=== PATIENT | female | born 1990 | race Two or more races ===

== ENCOUNTER 2024-03-30 22:21 | Inpatient (IN) | payer MEDICAID, OTHER ==
[~2024-03-30] VITALS: Ht 162.6 cm; Wt 52.9 kg
[2024-03-30 23:21] LABS: Hematocrit 45.5 % (36.0-46.0); Hemoglobin 15.4 g/dL (12.2-16.2); Mean Corpuscular Hemoglobin 29.9 pg (28.0-32.0); Mean Corpuscular Hgb Conc. 33.9 g/dL (32.0-36.0); Mean Corpuscular Volume 88.3 fL (80.0-100.0); Red Blood Cells 5.15 10^6/uL (4.0-5.20); Red Cell Distribution Width 13.3 % (11.8-14.3); White Blood Cell 16.5 10^3/uL (4.4-10.8)
[2024-03-30 23:22] LABS: Basophils % (manual) 0 (0.0-2.0); Blast Cells 0; Eosinophils % (manual) 0 (0-7); Metamyelocytes % 0; Myelocytes % 0; Promyelocytes % 0; Reactive Lymphocytes 0
[2024-03-30 23:36] LABS: Band Neutrophils % (manual) 4; Lymphocytes % (manual) 2 (10.0-50.0); Monocytes % (manual) 7 (0-12); Platelet Estimate Adequate
[2024-03-30 23:39] LABS: Alanine Aminotransferase 20 U/L (7-40); Albumin 4.8 g/dL (3.2-4.8); Alkaline Phosphatase 80 U/L (46-116); Anion Gap 8 (5-15); Aspartate Aminotransferase 22 U/L (13-40); BUN/Creatinine Ratio 8.6 (10.0-20.0); Blood Urea Nitrogen 9 mg/dL (9-23); Calcium 10.3 mg/dL (8.7-10.4); Carbon Dioxide 24 mmol/L (20-30); Chloride 107 mmol/L (98-107); Glucose 138 mg/dL (74-106); Lipase 38 U/L (12-53); Potassium 3.9 mmol/L (3.5-5.1); Sodium 139 mmol/L (136-145)
[2024-03-30 23:40] LABS: Total Protein 7.9 g/dL (5.7-8.2)
[2024-03-31] MEDS: MORPHINE SULFATE 4 MG/ML SYR/VIAL IV ONE (00:49)
[2024-03-31] MEDS: PANTOPRAZOLE 40 MG/10 ML VIAL INJ IV ONE (00:50)
[2024-03-31] MEDS: ONDANSETRON HCL 4 MG/2 ML VIAL IV ONE (00:50)
[2024-03-31] MEDS: SODIUM CHLORIDE 0.9% 1,000 ML IV ONE (00:51)
[2024-03-31 01:17] VITALS: PULSE 88; RESP 14; O2SAT 97
[2024-03-31] MEDS: PIPERACILLIN-TAZO 4.5GM 100 ML IV ONE (02:18)
[2024-03-31] MEDS ORDERED: ACETAMINOPHEN 325 MG TAB PO PRN (06:00)
[2024-03-31] MEDS ORDERED: MORPHINE SULFATE INJ 2 MG/ml SYRG IV PRN (06:00)
[2024-03-31] MEDS: metroNIDAZOLE 500MG/100ML 100 ML IV SCH (06:27)
[2024-03-31 07:47] LABS: Urine Bacteria None Seen /hpf (None Seen)
[2024-03-31 07:55] LABS: Urine Blood Negative /uL (Negative); Urine Clarity Clear (Clear); Urine Color Light-Yellow (Yellow); Urine Protein, UAD Negative (Negative); Urine Specific Gravity 1.028 (1.001-1.035); Urine Urobilinogen Normal (Negative); Urine WBC <1 /hpf (0 - 5)
[2024-03-31 08:00] VITALS: PULSE 68; RESP 20; O2SAT 99
[2024-03-31] MEDS: cefTRIAXone 1GM/50ML D5W 50 ML IV SCH (09:16)
[2024-03-31 09:57] VITALS: BP 99/56; PULSE 83; RESP 16; TEMP 98.1; O2SAT 98
[2024-03-31] MEDS ORDERED: CHOL20002 PO (10:05)
[2024-03-31] MEDS: HYDROcodone-ACET 5/325MG TAB PO PRN (11:00)
[2024-03-31] MEDS: LACTATED RINGER'S 1,000 ML IV SCH (11:19)
[2024-03-31] MEDS ORDERED: PARO-135 (15:59)
[2024-03-31 16:00] VITALS: BP 91/54; PULSE 76; RESP 16; TEMP 98.3; O2SAT 97
[2024-03-31] MEDS: metroNIDAZOLE 500 MG TAB PO SCH (17:16)
[2024-03-31] MEDS: ONDANSETRON HCL 4 MG/2 ML VIAL IV PRN (17:20)
[2024-03-31 20:00] VITALS: PULSE 76; RESP 18
[2024-03-31 21:00] VITALS: BP 96/64; PULSE 77; RESP 17; TEMP 98.2; O2SAT 97
[2024-04-01] VITALS (8 sets, daily range): BP systolic 99–116; BP diastolic 60–74; PULSE 50–72; RESP 16–18; TEMP 97.7–98.9; O2SAT 95–99
[2024-04-01 06:57] LABS: Basophils # (auto) 0 10 ^3/uL (0-0.2); Basophils % (auto) 0.3 % (0.0-2.0); Eosinophils # (auto) 0.2 10 ^3/uL (0-0.8); Eosinophils % (auto) 4.7 % (0.0-7.0); Hemoglobin 11.9 g/dL (12.2-16.2); Lymphocytes # (auto) 0.6 10 ^3/uL (0.4-5.4); Lymphocytes % (auto) 11.9 % (10.0-50.0); Mean Corpuscular Hemoglobin 30.8 pg (28.0-32.0); Mean Corpuscular Hgb Conc. 34.8 g/dL (32.0-36.0); Mean Corpuscular Volume 88.4 fL (80.0-100.0); Monocytes # (auto) 0.6 10 ^3/uL (0-1.3); Monocytes % (auto) 11.5 % (0.0-12.0); Neutrophils # (auto) 3.5 10 ^3/uL (1.6-8.6); Neutrophils % (auto) 71.6 % (37.0-80.0); Nucleated Red Blood Cells % 0.1 %; Red Blood Cells 3.85 10^6/uL (4.0-5.20); Red Cell Distribution Width 13.3 % (11.8-14.3); White Blood Cell 4.9 10^3/uL (4.4-10.8)
[2024-04-01 07:06] LABS: Alanine Aminotransferase 12 U/L (7-40); Albumin 3.1 g/dL (3.2-4.8); Alkaline Phosphatase 47 U/L (46-116); Anion Gap 3 (5-15); Aspartate Aminotransferase 13 U/L (13-40); Bilirubin, Total 1.6 mg/dL (0.2-1.0); Calcium 8.7 mg/dL (8.7-10.4); Carbon Dioxide 28 mmol/L (20-30); Chloride 110 mmol/L (98-107); Glucose 99 mg/dL (74-106); Sodium 141 mmol/L (136-145); Total Protein 5.1 g/dL (5.7-8.2)
[2024-04-01 07:12] LABS: BUN/Creatinine Ratio 6.3 (10.0-20.0); Blood Urea Nitrogen < 5 mg/dL (9-23)
[2024-04-01] MEDS: PARoxetine 20 MG TAB PO SCH (07:53)
[2024-04-01] MEDS: CHOLECALCIFEROL (VITD3) 1,000UNIT=25mCg TAB PO SCH (07:53)
[2024-04-01] MEDS: LOPERAMIDE 1 mg/7.5ml ORAL soln PO PRN (10:51)
[2024-04-01] MEDS: metroNIDAZOLE 500 MG TAB PO SCH (14:00)
[2024-04-01] MEDS: LOPERAMIDE HCL 2 MG CAP/TAB PO PRN (14:09)
[2024-04-02] VITALS (7 sets, daily range): BP systolic 106–133; BP diastolic 67–85; PULSE 52–86; RESP 18–20; TEMP 97.9–98.6; O2SAT 96–100
[2024-04-02 07:26] LABS: Basophils # (auto) 0 10 ^3/uL (0-0.2); Basophils % (auto) 0.4 % (0.0-2.0); Eosinophils # (auto) 0.2 10 ^3/uL (0-0.8); Eosinophils % (auto) 4.3 % (0.0-7.0); Hemoglobin 11.3 g/dL (12.2-16.2); Lymphocytes % (auto) 26.9 % (10.0-50.0); Mean Corpuscular Hemoglobin 31.2 pg (28.0-32.0); Mean Corpuscular Hgb Conc. 35.4 g/dL (32.0-36.0); Mean Corpuscular Volume 88.2 fL (80.0-100.0); Monocytes # (auto) 0.4 10 ^3/uL (0-1.3); Monocytes % (auto) 11.4 % (0.0-12.0); Neutrophils # (auto) 2.1 10 ^3/uL (1.6-8.6); Red Blood Cells 3.63 10^6/uL (4.0-5.20); Red Cell Distribution Width 13.3 % (11.8-14.3); White Blood Cell 3.8 10^3/uL (4.4-10.8)
[2024-04-02 07:34] LABS: Alanine Aminotransferase 11 U/L (7-40); Albumin 3.2 g/dL (3.2-4.8); Alkaline Phosphatase 46 U/L (46-116); Anion Gap 2 (5-15); Aspartate Aminotransferase 12 U/L (13-40); Calcium 8.7 mg/dL (8.5-10.1); Carbon Dioxide 30 mmol/L (20-30); Chloride 109 mmol/L (98-107); Glucose 86 mg/dL (74-106); Potassium 3.8 mmol/L (3.5-5.1); Sodium 141 mmol/L (136-145)
[2024-04-02 07:35] LABS: Bilirubin, Total 0.7 mg/dL (0.2-1.0); Total Protein 5.3 g/dL (5.7-8.2)
[2024-04-02 07:37] LABS: BUN/Creatinine Ratio 7.1 (10.0-20.0); Blood Urea Nitrogen < 5 mg/dL (9-23)
[2024-04-02] MEDS: LACTATED RINGER'S 1,000 ML IV SCH (11:15)
[2024-04-03 01:00] VITALS: BP 118/76; PULSE 66; RESP 17; TEMP 98.1; O2SAT 100
[2024-04-03 05:00] VITALS: BP 114/68; PULSE 52; RESP 17; TEMP 97.9; O2SAT 98
[2024-04-03 08:00] VITALS: PULSE 63; RESP 16; O2SAT 99
[2024-04-03 09:00] VITALS: BP 102/63; PULSE 63; RESP 16; TEMP 98.1; O2SAT 97
[2024-04-03] MEDS ORDERED: LOP2C PO (09:53)
[2024-04-03] MEDS ORDERED: METR-344 PO (09:53)
[2024-04-03 10:44] VITALS: BP 102/63; PULSE 63; RESP 16; TEMP 98.1; O2SAT 97
[2024-04-03] MEDS: CHOLESTYRAMINE 4 GM POWDER GT SCH (11:00)
[2024-04-03 13:00] VITALS: BP 107/67; PULSE 68; RESP 18; TEMP 98.1; O2SAT 95
== END 2024-04-03 12:18 | disposition home or self-care (01) | DRG 720 ==
LOC: ER 22:21 → OVERFLOW 03-31 06:02 → WEST WING 03-31 06:02
PROVIDERS: ADMIT Nurse Practitioner; ATTEND Family Medicine
DX: A41.89 Other specified sepsis (principal); N17.0 Acute kidney failure with tubular necrosis; A09 Infectious gastroenteritis and colitis, unspecified; R17 Unspecified jaundice; E86.0 Dehydration; E80.4 Gilbert syndrome; A08.4 Viral intestinal infection, unspecified
CPT/HCPCS: 36415; 74176; 80053; 81001; 81025; 83690; 85007; 85025; 85027; 85048; 87045; 87427; 87493; 93005; 96361; 96365; 96367; 96375; C9113; G0378; J2405; J2543; J3490